=== PATIENT | male | born 1985 | race African-American/Black ===

== ENCOUNTER 2021-01-29 00:10 | Emergency (ER) | payer MEDICARE, OTHER ==
[~2021-01-29] VITALS: Ht 175.3 cm; Wt 107.0 kg
--- NOTE | 2021-01-29 00:30 | NUR ---
BIBSELF C/O VISUAL AND AUDITORY HALLUCINATIONS. DENIES SI/HI AT THIS TIME. PT AAOX4, CALM AND COOPERATIVE. VITAL SIGNS STABLE. RESPIRATIONS EVEN AND UNLABORED. NO ACUTE DISTRESS NOTED AT THIS TIME. SITTER AT BEDSIDE, WILL CONTINUE TO MONITOR.
[2021-01-29 00:57] LABS: BILIRUBIN,URINE SMALL (NEGATIVE); COLOR,URINE YELLOW (YELLOW); LEUKOCYTE ESTERASE ,URINE NEGATIVE (NEGATIVE); NITRITE, URINE NEGATIVE (NEGATIVE); PH,URINE 5.5 (5.0-8.0); PROTEIN,URINE NEGATIVE (NEGATIVE); UGLUCOSE NEGATIVE (NEGATIVE); UROBILINOGEN,URINE 0.2 EU/dL (0.2)
[2021-01-29 00:58] LABS: BASOPHILS # (AUTO) 0.1 /CMM (0.0-0.2); BASOPHILS % (AUTO) 0.8 % (0.0-2.0); EOSINOPHILS % (AUTO) 2.5 % (0.0-6.0); HEMATOCRIT 44 % (39-51); HEMOGLOBIN 14.7 g/dL (13.5-17.5); MEAN CORPUSCULAR HGB CONC 33 g/dl (31.0-36.0); MEAN CORPUSCULAR VOLUME 95 fL (80-96); MONOCYTES # (AUTO) 0.5 /CMM (0.1-1.30); MONOCYTES % (AUTO) 6.4 % (2.0-12.0); NEUTROPHILS # (AUTO) 3.9 /CMM (1.8-8.9); NEUTROPHILS % (AUTO) 51.3 % (43.0-81.0); PLATELET COUNT (AUTO) 210 /CMM (150-450); RED BLOOD CELL COUNT(AUTO) 4.64 MIL/uL (4.5-6.0); WHITE BLOOD COUNT (AUTO) 7.6 K/uL (4.3-11.0)
[2021-01-29 01:11] LABS: BACTERIA,URINE None seen /HPF (None Seen); MUCUS,URINE Few /LPF (None Seen); RBC,URINE 0-2 /HPF (0-2); SQUAMOUS EPITHELIAL CELL,UR Few /HPF (None Seen); WBC,URINE 0-2 /HPF (0-3)
[2021-01-29 01:27] LABS: CALCIUM, SERUM 9.4 mg/dL (8.5-10.1); CARBON DIOXIDE 24 mmol/L (21-32); CHLORIDE 107 mmol/L (98-107); CREATININE 0.8 mg/dL (0.6-1.3); GLUCOSE 82 mg/dL (74-106); POTASSIUM 3.2 mmol/L (3.5-5.1); SODIUM SERUM 142 mmol/L (136-145); UREA NITROGEN, BLOOD 13 mg/dL (7-18)
[2021-01-29 01:39] LABS: ALANINE AMINOTRANSFERASE 32 U/L (12-78); ALBUMIN 4.1 g/dL (3.4-5.0); ALCOHOL, BLOOD < 3 mg/dL (0-0); ALKALINE PHOSPHATASE 102 U/L (46-116); ASPARTATE AMINOTRANSFERASE 27 U/L (15-37); BILIRUBIN,DIRECT 0.1 mg/dL (0.0-0.2); BILIRUBIN,TOTAL 0.5 mg/dL (0.2-1.0); TOTAL PROTEIN, SERUM 8.9 g/dL (6.4-8.2)
[2021-01-29 01:44] LABS: ACETAMINOPHEN < 2 ug/ml (10-30)
[2021-01-29] MEDS ORDERED: LORAZEPAM 1 MG TABLET PO ONE (08:00)
[2021-01-29] MEDS ORDERED: LORAZEPAM 1 MG TABLET ONE (08:02)
--- NOTE | 2021-01-29 08:13 | NUR ---
PATIENT REFUSED THE ATIVAN AT THIS TIME. EXPLAINED RISKS AND BENEFITS. STILL REFUSED. HE SPIT OUT THE MEDICINE.
[2021-01-29] MEDS ORDERED: QUETIAPINE FUMARATE 100 MG TABLET PO SCH (08:30)
--- NOTE | 2021-01-29 08:35 | NUR ---
PATIENT STS HE TAKES SEROQUEL 400MG IN AM AND 600MG AT BEDTIME. INFORMED DR. NXION.
--- NOTE | 2021-01-29 09:25 | NUR ---
[facility]
--- NOTE | 2021-01-29 10:30 | NUR ---
ANGELICA SENIOR LABORATORY TECHNICIAN AT BEDSIDE FOR EVAL.
--- NOTE | 2021-01-29 10:30 | NUR ---
"Forest Fire Management Officer consult: web services professional consult requested for homelessness. Patient is a 35-year-old, male. Per chart, patient was brought in by self and complained of hallucinations. SW met with patient at his bedside in the emergency department. Patient was alert and oriented x4. Patient was resting. Patient stated that he is currently homeless. Patient currently receives SSDI. Patient stated that he has a history of substance use which includes daily cannabis use. Patient denied history of mental illness and denies current hallucinations or delusions. Patient stated that he experienced auditory and visual hallucinations earlier today. Patient denied current suicidal or homicidal ideation. SW provided patient with homeless and substance use resources. Patient accepted resources and thanked SW. Patient signed homeless waiver and SW filed waiver in the patients chart. Patient requested voluntary inpatient psychiatric hospitalization at [facility]. ED staff faxed clinicals to [facility], , per patient request. Pending review for placement. SW will continue to follow up with [facility]. PLAN: SW will continue to follow up with [facility]. SW will remain available as needed. Year-round shelters: [facility] [address] [place] [place] [address] ; [facility] [address] [place] [address]; [place] [facility] [id number] [facility] [address] SPA 4 | [facility] Recreation [place] Provider: First to Serve Address: [address], [address] # of Beds: 48 Population Served: [facility] Provider: First to Serve Address: 7[address] [facility], [address] # of Beds: 73 Population Served: [facility] 6 | [facility] Provider: Home at Last Address: [address] [facility], [address] # of Beds: 63 Population Served: [facility] 3 | [facility] Provider: Angelina frank [place] Address: [address] [place] [address] # of Beds: 75 Population Served: [facility] 8 | [facility] Provider: Dustin DIGGS Address: [address] [facility], [address] # of Beds: 80 Population Served: [place] SPA 1 | [facility] Provider: Dustin DIGGS Address: [address] [facility] [facility], [address] # of Beds: 85 Population Served: [place] SPA 2 | [facility] Provider: Viola frank [facility] Address: Confidential (please call for location) # of Beds: 52 Population Served: [place] SPA 4 | [facility] Provider: [facility] Address: [address] [facility], [address] # of Beds: 49 Population Served: [facility] Provider: First To Serve Address: [address] [place] [address], [address] # of Beds: 27 Population Served: Fatou Hygiene: [facility]: [address] [facility] ; [place] [facility] [address] [facility] ; [facility] 1069 [facility] . Food Resources: [place] [facility] at [facility]- 5700 [facility]; Meet Each Need with Dignity ([facility]) [address] [facility]; [facility] 1995 [facility]; [facility] 8539 [facility]. Mental Health resources provided: [facility] [address] [place] [address] ; [facility] [address] [facility] [address], [place] [address] ; Sima Gallardo [facility] [address] [place] [address] ; [facility] [address] [place], [place] [address] Healthcare Clinics: [facility] [address] [facility], [address] [place]. [place] ; [facility] [address] [facility] [address] [place] [address]; [facility] [address] Hilar[facility] Anthony[facility]. [place] [address] [phone] Counseling--Outpatient [facility] [address] [facility], [address] [place], [place] [address] (Specializes in in-depth psychotherapy for emotional distress: anxiety, depression, interpersonal conflicts, life transitions, childhood abuse) PSYCHIATRIC OUTPATIENT SERVICES [facility] Partial Hospitalization and Intensive Outpatient Program (Managed Care and [place] Only) [address] SacramentoCritical access hospital. [facility] 699838 [facility] Partial Hospitalization and Outpatient Program [address] [place] [facility]. [address] [place], [place] [id number] [facility] Partial Hospitalization and Outpatient Program 49[address] [facility]. [place], [place] [phone] [facility] Mental Health [place] [facility] [address] [facility]. [address] [place], [place] [id number] [facility] Partial Hospitalization and Outpatient Program [address] [place], [place] [phone] Substance use resources provided included: [facility] Substance Abuse Self-Helpline (SASH) ; CRI -HELP [address] [facility] [place] [address] ; [facility] [address] [facility] [address] ; [place] [address] [facility] [address] ; [facility] [address] [facility] [phone] ; [address] [facility] [phone] ; [facility]; [facility] [place]; [facility] [place]; Alcoholics Anonymous -SFV"
--- NOTE | 2021-01-29 12:00 | NUR ---
FOOD TRAY PROVIDED
--- NOTE | 2021-01-29 14:00 | NUR ---
FOLLOWED UP WITH [facility] WILL GIVE US A CALL BACK. REFAXED CLINICALS.
--- NOTE | 2021-01-29 17:57 | NUR ---
CALL BACK FROM [facility],ACCEPTED BY DR BLACKMAN TO COUNTS INCLUDE 234 BEDS AT THE [facility] VN
--- NOTE | 2021-01-29 17:57 | NUR ---
REPORT TO [phone]
--- NOTE | 2021-01-29 18:02 | NUR ---
TRANSPORT CALLED [facility] ETA 60 MINS.
[2021-01-29 18:03] VITALS: BP 144/83
--- NOTE | 2021-01-29 19:07 | NUR ---
PER TRANSPORT PATIENT NEEDS BARIATRIC GURNEY. NEW ETA 45 MINS
--- NOTE | 2021-01-29 19:53 | NUR ---
[facility] AT BEDSIDE FOR TRANSPORT TO [facility]
== END 2021-01-29 19:54 ==
LOC: ER 00:16
DX: F20.0 Paranoid schizophrenia (principal); Z91.14 Patient's other noncompliance with medication regimen; E11.9 Type 2 diabetes mellitus without complications; Z20.822 Contact with and (suspected) exposure to COVID-19
CPT/HCPCS: 36415; 80048-TC; 80076-TC; 81001; 85025-TC; C9803; G0480

== ENCOUNTER 2021-02-07 22:45 | Emergency (ER) | payer MEDICARE ==
[~2021-02-07] VITALS: Ht 175.3 cm; Wt 110.2 kg
--- NOTE | 2021-02-07 23:31 | NUR ---
PT BIBSELF C/O DEPRESSION, REQUESTING VOLUNTARY ADMISSION TO PSYCH FACILITY. PT AAOX4. NOTED TACHYCARDIA ON ARRIVAL, MD AWARE. CALM AND COOPERATIVE. AMBULATORY WITH STEADY GA[facility]. NO ACUTE DISTRESS NOTED. SUICIDAL PRECAUTIONS INITIATED
[2021-02-07 23:45] LABS: BILIRUBIN,URINE Negative (NEGATIVE); COLOR,URINE ORANGE (YELLOW); LEUKOCYTE ESTERASE ,URINE Negative (NEGATIVE); NITRITE, URINE Negative (NEGATIVE); PH,URINE 5.5 (5.0-8.0); PROTEIN,URINE 100 mg/dl (NEGATIVE); UGLUCOSE Negative (NEGATIVE); UROBILINOGEN,URINE 0.2 EU/dL (0.2)
[2021-02-08 00:02] LABS: BASOPHILS % (AUTO) 0.5 % (0.0-2.0); EOSINOPHILS % (AUTO) 1.6 % (0.0-6.0); HEMATOCRIT 47 % (39-51); HEMOGLOBIN 15.5 g/dL (13.5-17.5); LYMPHOCYTES # (AUTO) 2.8 /CMM (0.8-4.8); LYMPHOCYTES % (AUTO) 29.7 % (20.0-44.0); MEAN CORPUSCULAR HGB CONC 33 g/dl (31.0-36.0); MEAN CORPUSCULAR VOLUME 94 fL (80-96); MONOCYTES % (AUTO) 10.7 % (2.0-12.0); NEUTROPHILS # (AUTO) 5.4 /CMM (1.8-8.9); NEUTROPHILS % (AUTO) 57.5 % (43.0-81.0); PLATELET COUNT (AUTO) 228 /CMM (150-450); RED BLOOD CELL COUNT(AUTO) 4.97 MIL/uL (4.5-6.0); WHITE BLOOD COUNT (AUTO) 9.5 K/uL (4.3-11.0)
[2021-02-08 00:10] LABS: CALCIUM, SERUM 9.6 mg/dL (8.5-10.1); CARBON DIOXIDE 24 mmol/L (21-32); CHLORIDE 104 mmol/L (98-107); CREATININE 0.9 mg/dL (0.6-1.3); GLUCOSE 112 mg/dL (74-106); POTASSIUM 3.4 mmol/L (3.5-5.1); SODIUM SERUM 141 mmol/L (136-145); UREA NITROGEN, BLOOD 18 mg/dL (7-18)
[2021-02-08 00:15] LABS: ALANINE AMINOTRANSFERASE 38 U/L (12-78); ALBUMIN 4.1 g/dL (3.4-5.0); ALCOHOL, BLOOD < 3 mg/dL (0-0); ALKALINE PHOSPHATASE 114 U/L (46-116); ASPARTATE AMINOTRANSFERASE 27 U/L (15-37); BILIRUBIN,DIRECT 0.1 mg/dL (0.0-0.2); BILIRUBIN,TOTAL 0.3 mg/dL (0.2-1.0)
[2021-02-08 00:17] LABS: ACETAMINOPHEN < 2 ug/ml (10-30)
--- NOTE | 2021-02-08 04:14 | NUR ---
ACCEPTED IMELDA ESCUDERO MD IRIELE NUMBER FOR REPORT [phone] UNIT1
--- NOTE | 2021-02-08 04:19 | NUR ---
[facility] ETA 45MINUTES
--- NOTE | 2021-02-08 04:22 | NUR ---
REPORT GIVEN TO ABHINAV KWOK FROM [facility]
--- NOTE | 2021-02-08 04:31 | NUR ---
SPOKE WITH ART FROM [facility]. PER ART, REQUESTING TO SEND PATIENT AT 0800. CALLED [facility] AND SPOKE WITH ISABELLE DON 0800
--- NOTE | 2021-02-08 07:21 | NUR ---
RECEIVED A CALL FROM ART, PATIENT IS DECLINED FROM [facility], BUT ACCEPTED AT [facility] IF PATIENT IS AGREEABLE. PATIENT ACCEPTED [facility].
--- NOTE | 2021-02-08 07:23 | NUR ---
CALLED [facility] FOR A WILL CALL AMBULANCE. CHANGED ROUTE TO [place].
--- NOTE | 2021-02-08 08:47 | NUR ---
ACCEPTED AT [facility] # REPORT [phone] EXT [phone]
--- NOTE | 2021-02-08 08:50 | NUR ---
CALLED [facility] 45 MINS.
--- NOTE | 2021-02-08 09:06 | NUR ---
PATIENT STS HE WANTS TO JUMP OFF A BRIDGE. REPORT GIVEN TO EMMA [place] AT [facility].
--- NOTE | 2021-02-08 10:32 | NUR ---
The patient in stable condition and transfered to [facility] via arranged transpo.
[2021-02-08 10:33] VITALS: BP 128/75
== END 2021-02-08 10:33 ==
LOC: ER 22:45
DX: R45.851 Suicidal ideations (principal); F12.90 Cannabis use, unspecified, uncomplicated; Z20.822 Contact with and (suspected) exposure to COVID-19; F31.9 Bipolar disorder, unspecified; I10 Essential (primary) hypertension; E11.9 Type 2 diabetes mellitus without complications; F20.0 Paranoid schizophrenia
CPT/HCPCS: 36415; 80048-TC; 80076-TC; 85025-TC; C9803; G0480

== ENCOUNTER 2021-02-14 07:40 | Emergency (ER) | payer MEDICARE ==
[~2021-02-14] VITALS: Ht 175.3 cm; Wt 110.2 kg
--- NOTE | 2021-02-14 07:50 | NUR ---
C/O FEELING DEPRESSED AND SUICIDAL,"I WANT TO OF PAIN" PATIENT A/OX4, BREATHING EVEN AND UNLABORED, NO SOB NOTED. NEEDS ATTENDED. PATIENT ASSISTED TO WAITING ROOM, INSTRUCTED PATIENT TO CALL FOR ASSISTANCE.
--- NOTE | 2021-02-14 08:00 | NUR ---
BLOOD DRAWN, COVID SWAB SENT.
[2021-02-14 08:09] LABS: BASOPHILS # (AUTO) 0.1 /CMM (0.0-0.2); BASOPHILS % (AUTO) 1.1 % (0.0-2.0); EOSINOPHILS % (AUTO) 4.3 % (0.0-6.0); HEMATOCRIT 41 % (39-51); HEMOGLOBIN 13.9 g/dL (13.5-17.5); LYMPHOCYTES # (AUTO) 2.8 /CMM (0.8-4.8); LYMPHOCYTES % (AUTO) 41.3 % (20.0-44.0); MEAN CORPUSCULAR HGB CONC 34 g/dl (31.0-36.0); MEAN CORPUSCULAR VOLUME 93 fL (80-96); MONOCYTES # (AUTO) 0.6 /CMM (0.1-1.30); MONOCYTES % (AUTO) 8.8 % (2.0-12.0); NEUTROPHILS % (AUTO) 44.5 % (43.0-81.0); PLATELET COUNT (AUTO) 252 /CMM (150-450); WHITE BLOOD COUNT (AUTO) 6.8 K/uL (4.3-11.0)
[2021-02-14 08:15] LABS: CALCIUM, SERUM 9.3 mg/dL (8.5-10.1); CARBON DIOXIDE 30 mmol/L (21-32); CHLORIDE 105 mmol/L (98-107); CREATININE 0.8 mg/dL (0.6-1.3); GLUCOSE 122 mg/dL (74-106); POTASSIUM 3.4 mmol/L (3.5-5.1); SODIUM SERUM 143 mmol/L (136-145); UREA NITROGEN, BLOOD 12 mg/dL (7-18)
[2021-02-14 08:28] LABS: BILIRUBIN,URINE Negative (NEGATIVE); COLOR,URINE YELLOW (YELLOW); LEUKOCYTE ESTERASE ,URINE Negative (NEGATIVE); NITRITE, URINE Negative (NEGATIVE); PH,URINE 5.5 (5.0-8.0); PROTEIN,URINE 30 mg/dl (NEGATIVE); UGLUCOSE Negative (NEGATIVE); UROBILINOGEN,URINE 0.2 EU/dL (0.2)
[2021-02-14 08:28] LABS: ALANINE AMINOTRANSFERASE 37 U/L (12-78); ALBUMIN 3.8 g/dL (3.4-5.0); ALKALINE PHOSPHATASE 118 U/L (46-116); ASPARTATE AMINOTRANSFERASE 31 U/L (15-37); BILIRUBIN,DIRECT 0.1 mg/dL (0.0-0.2); BILIRUBIN,TOTAL 0.3 mg/dL (0.2-1.0); TOTAL PROTEIN, SERUM 8.1 g/dL (6.4-8.2)
[2021-02-14 08:39] LABS: ACETAMINOPHEN 0 ug/ml (10-30); ALCOHOL, BLOOD < 3 mg/dL (0-0)
[2021-02-14 08:40] LABS: BACTERIA,URINE Rare /HPF (None Seen); RBC,URINE 0-2 /HPF (0-2); SQUAMOUS EPITHELIAL CELL,UR None Seen /HPF (None Seen); WBC,URINE 0-2 /HPF (0-3)
--- NOTE | 2021-02-14 10:25 | NUR ---
Pretzel Cooker note: director professional services consult requested for suicidal ideation and homelessness. Patient is a 35-year-old, male. SW attempted to interview patient in the waiting room of the emergency department. Upon arrival, pt was not in the waiting room. SW will follow up at a later time to interview the patient.
--- NOTE | 2021-02-14 11:12 | NUR ---
POLICE LIEUTENANT PRECINCT AT BEDSIDE FOR CONSULT.
--- NOTE | 2021-02-14 11:30 | NUR ---
Programmer Developer consult: adoption services manager consult requested for suicidal ideation and homelessness. Patient is a 35-year-old, male. SW met with patient in the waiting room of the emergency department. Patient was alert and oriented x4. Patient presented calm and appeared appropriately dressed. Per chart, patient came to the hospital on 02/14/21 with complaints of feeling depressed and suicidal. Patient stated that he is currently homeless but was staying at a hotel prior to his hospital visit. Patient stated that his current source of income is SSI and SSDI. Patient stated that he has been locating living arrangement options and plans to live in a board and care. SW asked patient about his history of substance use and patient reported daily cannabis, cigarette, and alcohol use. SW assessed patients history of mental illness and patient reported a history of Paranoid Schizophrenia, Bipolar type. Patient reported that he is currently taking psychiatric medication which includes, Seroquel and Dopamine. Patient denied current suicidal and homicidal ideation and stated, I dont feel suicidal right now but need some help. SW offered the patient homeless and substance use resources. Patient declined the resources stating that he did not need them. Patient signed homeless waiver and SW filed waiver in the patients chart. Patient requested to be referred to [facility] for inpatient psychiatric treatment. JUSTIN will fax clinicals to [facility], , for review. PLAN: JUSTIN will fax clinicals to [facility] for review.
--- NOTE | 2021-02-14 11:52 | NUR ---
PATIENT IN THE WAITING ROOM.
--- NOTE | 2021-02-14 12:11 | NUR ---
Claim Inspector note: JUSTIN faxed clinicals to [facility], , for review.
--- NOTE | 2021-02-14 13:00 | NUR ---
Director Of Healthcare Systems note: Per product marketing coordinator, Nils ([phone]), patient has been accepted to [facility]. ED staff to call in to report at 1:30 p. (Meghan: [phone])
--- NOTE | 2021-02-14 13:24 | NUR ---
FAXED COVID RESULT TO [facility] CALL VN.
--- NOTE | 2021-02-14 14:11 | NUR ---
[facility]ED [facility] FOR TRANSPORT TO [facility]. ETA 90 MINUTES.
--- NOTE | 2021-02-14 14:58 | NUR ---
CALL FROM [facility]:ACCEPTED BY DR BLACKMAN,REPORT TO [id number]
[2021-02-14 15:35] VITALS: BP 134/82
--- NOTE | 2021-02-14 15:36 | NUR ---
report given to UNIT 2 at [facility]. Patient a/ox4, in stable condition. No distress noted. Patient transferred to [facility].
== END 2021-02-14 15:37 ==
LOC: ER 07:45
DX: R45.851 Suicidal ideations (principal); F20.0 Paranoid schizophrenia; Z59.0 Homelessness; Z20.822 Contact with and (suspected) exposure to COVID-19
CPT/HCPCS: 36415; 80048-TC; 80076-TC; 81001; 85025-TC; C9803; G0480

== ENCOUNTER 2021-03-24 03:25 | Emergency (ER) | payer MEDICARE ==
[~2021-03-24] VITALS: Ht 175.3 cm; Wt 131.5 kg
--- NOTE | 2021-03-24 03:30 | NUR ---
TO ER BED REQUESTING MEDICAL CLEARANCE FOR VOLUNTARY PSYCH ADMISSION. PT C/O SI WITH PLAN TO "OVERDOSE ON MEDS". DENIES HI. PT AAOX4 NO ACUTE DISTRESS NOTED, RESP EVEN AND UNLABORED. PT CALM AND COOPERATIVE AT THIS TIME. ER MD AT BEDSIDE TO EVAL PT WITH ORDERS RECEIVED. WILL CARRY OUT ORDERS.
--- NOTE | 2021-03-24 03:45 | NUR ---
URINE SAMPLE COLLECTED AND SENT TO LAB.
--- NOTE | 2021-03-24 03:56 | NUR ---
DAIRY CATTLE FARM WORKER AT BEDSIDE FOR BLOOD DRAW.
--- NOTE | 2021-03-24 04:02 | NUR ---
COVID SWAB COLLECTED AND SENT TO LAB.
[2021-03-24 04:08] LABS: BASOPHILS # (AUTO) 0.1 K/uL (0.0-0.2); BASOPHILS % (AUTO) 1.2 % (0.0-2.0); EOSINOPHILS % (AUTO) 2.3 % (0.0-6.0); HEMATOCRIT 40 % (39-51); HEMOGLOBIN 13.6 g/dL (13.5-17.5); LYMPHOCYTES # (AUTO) 2.6 K/uL (0.8-4.8); MEAN CORPUSCULAR HGB CONC 34 g/dl (31.0-36.0); MEAN CORPUSCULAR VOLUME 92 fL (80-96); MONOCYTES # (AUTO) 0.8 K/uL (0.1-1.30); MONOCYTES % (AUTO) 8.9 % (2.0-12.0); NEUTROPHILS # (AUTO) 5.1 K/uL (1.8-8.9); NEUTROPHILS % (AUTO) 57.6 % (43.0-81.0); PLATELET COUNT (AUTO) 215 K/uL (150-450); WHITE BLOOD COUNT (AUTO) 8.8 K/uL (4.3-11.0)
[2021-03-24 04:10] LABS: BILIRUBIN,URINE Negative (NEGATIVE); COLOR,URINE YELLOW (YELLOW); LEUKOCYTE ESTERASE ,URINE Negative (NEGATIVE); NITRITE, URINE Negative (NEGATIVE); PROTEIN,URINE Negative (NEGATIVE); UGLUCOSE Negative (NEGATIVE)
[2021-03-24 04:22] LABS: CALCIUM, SERUM 8.7 mg/dL (8.5-10.1); CARBON DIOXIDE 28 mmol/L (21-32); CHLORIDE 106 mmol/L (98-107); CREATININE 0.7 mg/dL (0.6-1.3); GLUCOSE 104 mg/dL (74-106); POTASSIUM 3.6 mmol/L (3.5-5.1); SODIUM SERUM 143 mmol/L (136-145); UREA NITROGEN, BLOOD 19 mg/dL (7-18)
[2021-03-24 04:28] LABS: ALANINE AMINOTRANSFERASE 25 U/L (12-78); ALBUMIN 3.6 g/dL (3.4-5.0); ALCOHOL, BLOOD < 3 mg/dL (0-0); ALKALINE PHOSPHATASE 99 U/L (46-116); ASPARTATE AMINOTRANSFERASE 17 U/L (15-37); BILIRUBIN,DIRECT 0.1 mg/dL (0.0-0.2); BILIRUBIN,TOTAL 0.3 mg/dL (0.2-1.0); TOTAL PROTEIN, SERUM 7.9 g/dL (6.4-8.2)
[2021-03-24 04:32] LABS: ACETAMINOPHEN 0 ug/ml (10-30)
[2021-03-24 04:56] LABS: BACTERIA,URINE None seen /HPF (None Seen); RBC,URINE 0-2 /HPF (0-2); SQUAMOUS EPITHELIAL CELL,UR None Seen /HPF (None Seen); WBC,URINE 0-2 /HPF (0-3)
--- NOTE | 2021-03-24 05:19 | NUR ---
CLINICAL AND FACESHEET FAXED TO [facility] FOR VOLUNTARY PSYCH ADMISSION.
--- NOTE | 2021-03-24 05:55 | NUR ---
pt accepted to [facility] under Dr Fang. Give report to Lauro at [phone]
--- NOTE | 2021-03-24 06:04 | NUR ---
TRANSPORT CALLED ([facility]) ETA 30-45MIN.
--- NOTE | 2021-03-24 06:04 | NUR ---
REPORT GIVEN TO IMELDA ANGEL SUP CODY
--- NOTE | 2021-03-24 06:54 | NUR ---
TRANSPORT AT BEDSIDE REPORT GIVEN TO EMT.
[2021-03-24 06:55] VITALS: BP 143/86
== END 2021-03-24 07:39 ==
LOC: ER 03:26
DX: R45.851 Suicidal ideations (principal); F12.90 Cannabis use, unspecified, uncomplicated; Z20.822 Contact with and (suspected) exposure to COVID-19; F20.0 Paranoid schizophrenia; I10 Essential (primary) hypertension; E11.9 Type 2 diabetes mellitus without complications
CPT/HCPCS: 36415; 80048-TC; 80076-TC; 81001; 85025-TC; C9803; G0480

== ENCOUNTER 2021-05-13 14:57 | Emergency (ER) | payer MEDICARE ==
[~2021-05-13] VITALS: Ht 175.3 cm; Wt 129.7 kg
--- NOTE | 2021-05-13 15:49 | NUR ---
PT SELF PRESENTS TO ED. REQUESTING VOLUNTARY PSYCH ADMISSION TO [facility]. PT IS FEELING PARANOID THINKING SOMEBODY OUT TO GET HIM. DENIES SI/HI. COOPERATIVE TO HOSPITAL. STABLE VITALS. DENIES ANY MEDICAL COMPLAINT. AWAITING MD MAURER.
--- NOTE | 2021-05-13 15:50 | NUR ---
URINE SPECIMEN COLLECTED AND SENT TO LAB.
--- NOTE | 2021-05-13 16:30 | NUR ---
DR HERNÁNDEZ AT BEDSIDE FOR EVAL.
--- NOTE | 2021-05-13 16:58 | NUR ---
Keyla mota in [facility] - 05/13/21 at 1658 by SADE PHLEBATOMIST AT THE BEDSIDE
[2021-05-13 17:23] LABS: BILIRUBIN,URINE NEGATIVE (NEGATIVE); COLOR,URINE YELLOW (YELLOW); LEUKOCYTE ESTERASE ,URINE SMALL (NEGATIVE); NITRITE, URINE NEGATIVE (NEGATIVE); PH,URINE 5.5 (5.0-8.0); PROTEIN,URINE TRACE mg/dl (NEGATIVE); UGLUCOSE NEGATIVE (NEGATIVE); UROBILINOGEN,URINE 0.2 EU/dL (0.2)
[2021-05-13 17:38] LABS: BACTERIA,URINE 1+ /HPF (None Seen); SQUAMOUS EPITHELIAL CELL,UR Few /HPF (None Seen); WBC,URINE 21-50 /HPF (0-3)
[2021-05-13 17:39] LABS: URINE AMORPHOUS URATE Moderate /HPF (None Seen)
[2021-05-13 18:19] LABS: BASOPHILS % (AUTO) 0.6 % (0.0-2.0); EOSINOPHILS % (AUTO) 0.3 % (0.0-6.0); HEMATOCRIT 45 % (39-51); HEMOGLOBIN 15.1 g/dL (13.5-17.5); LYMPHOCYTES # (AUTO) 2.2 K/uL (0.8-4.8); LYMPHOCYTES % (AUTO) 28.9 % (20.0-44.0); MEAN CORPUSCULAR HGB CONC 34 g/dl (31.0-36.0); MEAN CORPUSCULAR VOLUME 94 fL (80-96); MONOCYTES # (AUTO) 0.7 K/uL (0.1-1.30); MONOCYTES % (AUTO) 8.7 % (2.0-12.0); NEUTROPHILS # (AUTO) 4.6 K/uL (1.8-8.9); NEUTROPHILS % (AUTO) 61.5 % (43.0-81.0); PLATELET COUNT (AUTO) 220 K/uL (150-450); RED BLOOD CELL COUNT(AUTO) 4.78 MIL/uL (4.5-6.0); WHITE BLOOD COUNT (AUTO) 7.5 K/uL (4.3-11.0)
[2021-05-13 18:34] LABS: CALCIUM, SERUM 9.4 mg/dL (8.5-10.1); CARBON DIOXIDE 25 mmol/L (21-32); CHLORIDE 106 mmol/L (98-107); CREATININE 0.8 mg/dL (0.6-1.3); GLUCOSE 81 mg/dL (74-106); POTASSIUM 3.4 mmol/L (3.5-5.1); SODIUM SERUM 141 mmol/L (136-145); UREA NITROGEN, BLOOD 13 mg/dL (7-18)
[2021-05-13 18:40] LABS: ALANINE AMINOTRANSFERASE 24 U/L (12-78); ALBUMIN 4.2 g/dL (3.4-5.0); ALCOHOL, BLOOD < 3 mg/dL (0-0); ALKALINE PHOSPHATASE 117 U/L (46-116); ASPARTATE AMINOTRANSFERASE 19 U/L (15-37); BILIRUBIN,DIRECT 0.1 mg/dL (0.0-0.2); BILIRUBIN,TOTAL 0.4 mg/dL (0.2-1.0); TOTAL PROTEIN, SERUM 9.5 g/dL (6.4-8.2)
[2021-05-13 18:43] LABS: ACETAMINOPHEN 0 ug/ml (10-30)
[2021-05-13] MEDS ORDERED: CEFTRIAXONE 500 MG VIAL IM ONE (19:30)
[2021-05-13] MEDS ORDERED: DOXYCYCLINE HYCLATE (100 MG) 100 MG TABLET PO ONE (19:30)
--- NOTE | 2021-05-13 19:58 | NUR ---
PT PROVIDED WITH WARM BLANKETS AND WATER.
--- NOTE | 2021-05-13 20:02 | NUR ---
FACESHEET AND CLINICALS FAXED TO IMELDA MADDOX.
[2021-05-13] MEDS ORDERED: CEFTRIAXONE 500 MG VIAL ONE (20:13)
[2021-05-13] MEDS ORDERED: LIDOCAINE 1% INJ 50 ML MDV IJ ONE (20:13)
[2021-05-13] MEDS ORDERED: DOXYCYCLINE HYCLATE (100 MG) 100 MG TABLET ONE (20:13)
[2021-05-13] MEDS ORDERED: OLANZAPINE 5 MG TABLET ONE (20:53)
[2021-05-13] MEDS ORDERED: OLANZAPINE 5 MG TABLET PO ONE (21:00)
[2021-05-13] MEDS ORDERED: DOXY100C2 PO (21:36)
--- NOTE | 2021-05-14 05:17 | NUR ---
Patient is resting comfortably in bed with eyes closed. Easily aroused. VSS
--- NOTE | 2021-05-14 07:55 | NUR ---
THE PATIENT IS RECEIVED IN ER BED #14. THE PATIENT IS ALERT AND ORIENTED X3. IN ROOM AIR AND DENIES SOB. RESPIRATION REGULAR AND UNLABORED. SITTER AT THE BEDSIDE. WILL CONTINUE TO MONITOR THE PATIENT.
--- NOTE | 2021-05-14 08:02 | NUR ---
THE PATIET IS HAVING BREAKFAST
--- NOTE | 2021-05-14 09:08 | NUR ---
RECEIVED A CALL FROM [facility]. PT ACCEPTED AND GOOD TO BE TRANSPORTED. ACCEPTING DR. PERRY NUMBER FOR REPORT. [phone].
--- NOTE | 2021-05-14 09:12 | NUR ---
CALLED [facility] FOR TRANSPORT TO [facility]. ETA 90 MINUTES.
--- NOTE | 2021-05-14 09:18 | NUR ---
REPORT GIVEN TO NURSE WILMA FROM [facility] ESCUD[facility]
[2021-05-14] MEDS ORDERED: POTASSIUM CHLORIDE 20 MEQ TAB.PRT.SR PO ONE ×2 (10:00→10:57)
--- NOTE | 2021-05-14 10:50 | NUR ---
Counter Hand consult: media services director consult requested for pt requesting voluntary psychiatric placement and for homelessness. Patient is a 36-year-old, male. SW met with patient at his bedside in the emergency department. Patient was alert and oriented x3. Patient presented with a depressed mood and affect. Patient appeared appropriately groomed and well-dressed. Per chart, patient was brought in by self on 05/13/21, presenting with paranoid ideation and requesting voluntary psychiatric admission. Patient stated that he is currently homeless and lives on the street. Patient stated that his current source of income is [employer]. Patient repeatedly stated that he plans to return to a senior care in [place] but was unable to state how he would execute this plan. SW asked patient about his history of substance use and patient reported daily cannabis and alcohol use, stating that his frequency of use for these substances are 1-2 times a day. SW assessed patient's history of mental illness and patient reported a history of Paranoid Schizophrenia, Bipolar type. Patient reported that he was previously taking psychotropic medications which includes, Seroquel and Wellbutrin. Patient stated that he stopped taking the medications because they made him feel bad and he "needed to be alert." Patient denied current suicidal and homicidal ideation but stated, "If you gave me some time, I would take pills and not wake up." Patient stated, "I'm not suicidal, I'm just ready to quit getting my feelings hurt." SW offered the patient homeless, mental health and substance use resources. Patient accepted the resources and thanked SW. Patient signed homeless waiver and SW filed waiver in the patient's chart. Per chart, patient will be transferred to [facility] and has been accepted. PLAN: Patient will be transferred to [facility] for voluntary psychiatric admission. No further SS intervention at this time, however, SW will remain available as needed. RESOURCES: Year-round shelters: [facility] [place] [address] [place] [address] ; [facility] [place] [address] [place] [address]; [facility] [id number] [facility]. [facility] [address] SPA 4 | [facility] Provider: First to Serve Address: [address] [place] [address], [facility] # of Beds: 48 Population Served: [facility] Provider: First to Serve Address: 7600 [facility], [address] # of Beds: 73 Population Served: [facility] 6 | [facility] Provider: Home at Last Address: [address] [facility], [address] # of Beds: 63 Population Served: [facility] 3 | [facility] Provider: [facility] [place] Address: [address] [facility], [address] # of Beds: 75 Population Served: [facility] 8 | [facility] Provider: [facility] [place] Address: 84[address] [facility] [address] # of Beds: 80 Population Served: [facility] 1 | [facility] Provider: [facility] [place] Address: [address] [place] [address], [address] # of Beds: 85 Population Served: [facility] 2 | [facility] Provider: [facility] Address: Confidential (please call for location) # of Beds: 52 Population Served: [facility] 4 | [facility] Provider: [facility] Address: 5[address] [facility], [address] # of Beds: 49 Population Served: [facility] Provider: First To Serve Address: [address] [facility], [address] # of Beds: 27 Population Served: [facility] Hygiene: [place] [facility]: [address] [address] [place] ; [facility] [facility] [address] [facility] ; [facility] 8925 Karlos Dean . Food Resources: [place] [facility] at [facility]- [address] Jan[address] [place]; Meet Each Need with Dignity (MEND) [address] [place]; [facility] Food Pantry 1876 [facility]; [facility] 5799 [place]elia [place]. Mental Health resources provided: [facility] [address] [place] [address] ; [facility] Health [place], Inc[facility] [address] [facility] [address], [place], [place] [phone] ; [facility] [address] [facility] [place], [place] [id number] ; [facility] [place], [place] [id number] Healthcare Clinics: [facility] 6551 [facility], [address] [place]. [place] ; [facility] 68[address] [facility] [address] [place] [address]; [facility] [address] [facility] [place] [address] [phone] Counseling--Outpatient [facility] 44[address] [facility], [place] [address] (Specializes in in-depth psychotherapy for emotional distress: anxiety, depression, interpersonal conflicts, life transitions, childhood abuse) PSYCHIATRIC OUTPATIENT SERVICES [facility] Partial Hospitalization and Intensive Outpatient Program (Managed Care and [place] Only) [address] [facility] [id number] [facility] Partial Hospitalization and Outpatient Program [address] [place] [address] [facility] Partial Hospitalization and Outpatient Program [address] [place], [place] [id number] VAN YS [facility] [facility] [address] [facility]. [address] [place], [place] [phone] [facility] Partial Hospitalization and Outpatient Program [address] Tr[address] [facility] Hospital[facility]agen[facility], [place] [phone] Substance use resources provided included: [facility] Substance Abuse Self-Helpline (SAS) ; CRI -HELP [address] [facility]. [place] [address] ; [facility] [address] [facility] [address] ; [facility] 400 [facility] [address] ; [facility] [place] 4770 [facility] [address] ; [facility] 909 [facility] [phone] ; [facility]; C[facility]Help [place]; [place]; Alcoholics Anonymous -SFV
[2021-05-14 11:45] VITALS: BP 135/75
--- NOTE | 2021-05-14 11:45 | NUR ---
THE PATIENT IS DISCHARGED GOING TO [facility] IN STABLE CONDITION AND VIA ARRANGED TRANSPO.
== END 2021-05-14 11:46 ==
LOC: ER 15:15
DX: F20.0 Paranoid schizophrenia (principal); R82.81 Pyuria; Z82.49 Family history of ischemic heart disease and other diseases of the circulatory system; Z20.822 Contact with and (suspected) exposure to COVID-19; E11.9 Type 2 diabetes mellitus without complications; I10 Essential (primary) hypertension; Z72.51 High risk heterosexual behavior; Z88.8 Allergy status to other drugs, medicaments and biological substances; R00.0 Tachycardia, unspecified
CPT/HCPCS: 36415; 76770; 80048; 80076; 80143; 80307; 80320; 81001; 84484; 85025; 87086; 87426; 93005; 96372; 99285; J0696; J3490; C9803; G0480

== ENCOUNTER 2021-08-23 18:31 | Emergency (ER) | payer MEDICARE ==
[~2021-08-23] VITALS: Ht 180.3 cm; Wt 113.4 kg
[~2021-08-23 18:31] MED LIST changes: -QUET300T2 PO
--- NOTE | 2021-08-23 19:36 | NUR ---
URINE COLLECTED AND SENT TO LAB
[2021-08-23 19:48] LABS: BASOPHILS # (AUTO) 0.1 K/uL (0.0-0.2); BASOPHILS % (AUTO) 0.8 % (0.0-2.0); EOSINOPHILS % (AUTO) 1.3 % (0.0-6.0); HEMATOCRIT 40 % (39-51); HEMOGLOBIN 13.7 g/dL (13.5-17.5); LYMPHOCYTES % (AUTO) 41.1 % (20.0-44.0); MEAN CORPUSCULAR HGB CONC 34 g/dl (31.0-36.0); MEAN CORPUSCULAR VOLUME 94 fL (80-96); MONOCYTES # (AUTO) 0.7 K/uL (0.1-1.30); MONOCYTES % (AUTO) 6.9 % (2.0-12.0); NEUTROPHILS # (AUTO) 4.8 K/uL (1.8-8.9); NEUTROPHILS % (AUTO) 49.9 % (43.0-81.0); PLATELET COUNT (AUTO) 284 K/uL (150-450); RED BLOOD CELL COUNT(AUTO) 4.25 MIL/uL (4.5-6.0); WHITE BLOOD COUNT (AUTO) 9.7 K/uL (4.3-11.0)
[2021-08-23 19:55] LABS: ALANINE AMINOTRANSFERASE 22 U/L (12-78); ALBUMIN 3.7 g/dL (3.4-5.0); ALCOHOL, BLOOD < 3 mg/dL (0-0); ALKALINE PHOSPHATASE 88 U/L (46-116); ASPARTATE AMINOTRANSFERASE 16 U/L (15-37); BILIRUBIN,DIRECT 0.1 mg/dL (0.0-0.2); BILIRUBIN,TOTAL 0.3 mg/dL (0.2-1.0); CALCIUM, SERUM 9.5 mg/dL (8.5-10.1); CARBON DIOXIDE 25 mmol/L (21-32); CHLORIDE 103 mmol/L (98-107); CREATININE 0.9 mg/dL (0.6-1.3); GLUCOSE 83 mg/dL (74-106); POTASSIUM 3.5 mmol/L (3.5-5.1); SODIUM SERUM 140 mmol/L (136-145); TOTAL PROTEIN, SERUM 8.9 g/dL (6.4-8.2); UREA NITROGEN, BLOOD 14 mg/dL (7-18)
[2021-08-23 20:02] LABS: ACETAMINOPHEN < 2 ug/ml (10-30)
--- NOTE | 2021-08-23 20:11 | NUR ---
BIBS C/O SI REQUESTING VOLUNTARY ADMISSION TO [facility]. BREATHING EVEN AND UNLABORED AND ALL V/S STABLE.
--- NOTE | 2021-08-23 20:12 | NUR ---
COVID ANTIGEN SWAB COLLECTED AND SENT TO LAB
[2021-08-23 20:16] LABS: BILIRUBIN,URINE NEGATIVE (NEGATIVE); COLOR,URINE YELLOW (YELLOW); LEUKOCYTE ESTERASE ,URINE NEGATIVE (NEGATIVE); NITRITE, URINE NEGATIVE (NEGATIVE); PH,URINE 5.5 (5.0-8.0); PROTEIN,URINE 30 mg/dl (NEGATIVE); UGLUCOSE NEGATIVE (NEGATIVE)
[2021-08-23 21:01] LABS: BACTERIA,URINE None seen /HPF (None Seen); RBC,URINE 0-2 /HPF (0-2); SQUAMOUS EPITHELIAL CELL,UR 0-2 /HPF (None Seen); URINE AMORPHOUS URATE Moderate /HPF (None Seen); WBC,URINE 0-2 /HPF (0-3)
--- NOTE | 2021-08-24 01:23 | NUR ---
Patient is resting comfortably in bed with eyes closed. Easily aroused. VSS
--- NOTE | 2021-08-24 04:43 | NUR ---
Accepted at [facility] under dr. dacosta. [phone] for report
--- NOTE | 2021-08-24 04:46 | NUR ---
report given to gopi berry for zeke
--- NOTE | 2021-08-24 05:55 | NUR ---
BOTTOM PRECIPITATOR OPERATOR AT 0700 BY [facility] TRAN[facility]
[2021-08-24 07:26] VITALS: BP 119/67
--- NOTE | 2021-08-24 07:32 | NUR ---
REPORT GIVEN TO ASSEMBLY RIVETER GOING TO [facility] G[facility].
[2021-08-31] MEDS ORDERED: QUET300T2 PO (11:15)
== END 2021-08-24 07:46 ==
LOC: ER 18:33
DX: R45.851 Suicidal ideations (principal); F17.200 Nicotine dependence, unspecified, uncomplicated; Z59.01 Sheltered homelessness; F20.0 Paranoid schizophrenia; E11.9 Type 2 diabetes mellitus without complications; I10 Essential (primary) hypertension; Z88.8 Allergy status to other drugs, medicaments and biological substances; Z20.822 Contact with and (suspected) exposure to COVID-19
CPT/HCPCS: 36415; 80048-TC; 80076-TC; 81001; 85025-TC; C9803; G0480

== ENCOUNTER → 2021-08-23 | Emergency (ER) | payer MEDICARE ==
[~2021-08-23] MED LIST: DOXY100C2 PO; QUET300T2 PO
--- NOTE | 2021-08-23 18:00 | NUR ---
Multiple calls NO response was told by Shy "he left"
== END | disposition left against medical advice (07) ==
LOC: ER 18:01
DX: Z53.21 Procedure and treatment not carried out due to patient leaving prior to being seen by health care provider (principal)

== ENCOUNTER → 2021-08-31 | Emergency (ER) | payer MEDICARE, OTHER ==
[~2021-08-31] VITALS: Ht 175.3 cm; Wt 110.2 kg
[~2021-08-31] MED LIST changes: +QUET300T2 PO
[2021-08-31 10:58] VITALS: BP 140/75
--- NOTE | 2021-08-31 10:58 | NUR ---
MED-REFILL FOR SEROQUEL 600 MG HS
--- NOTE | 2021-08-31 11:20 | NUR ---
JUSTIN FIELD SPEAKING WITH PT
--- NOTE | 2021-08-31 11:21 | NUR ---
Patient discharged to home in stable condition. patient was given his medication, sent to his preferred pharmacy. Written and verbal after care instructions given. Patient verbalizes understanding of instruction.
== END | disposition home or self-care (01) ==
LOC: ER 10:48
DX: F20.9 Schizophrenia, unspecified (principal); I10 Essential (primary) hypertension; E11.9 Type 2 diabetes mellitus without complications; F17.290 Nicotine dependence, other tobacco product, uncomplicated; Z76.0 Encounter for issue of repeat prescription; Z88.8 Allergy status to other drugs, medicaments and biological substances; Z79.2 Long term (current) use of antibiotics

== ENCOUNTER 2021-09-01 15:59 | Emergency (ER) | payer MEDICARE, OTHER ==
[~2021-09-01] VITALS: Ht 175.3 cm; Wt 110.2 kg
[2021-09-01 16:37] VITALS: BP 150/90
--- NOTE | 2021-09-01 16:40 | NUR ---
AT BEDSIDE FOR EVAL
--- NOTE | 2021-09-01 16:48 | NUR ---
Patient eloped from facility. ER MD notified.
== END 2021-09-01 16:49 | disposition left against medical advice (07) ==
LOC: ER 16:01
DX: F20.9 Schizophrenia, unspecified (principal); I10 Essential (primary) hypertension; E11.9 Type 2 diabetes mellitus without complications; F17.290 Nicotine dependence, other tobacco product, uncomplicated; Z76.0 Encounter for issue of repeat prescription; Z79.2 Long term (current) use of antibiotics; Z79.899 Other long term (current) drug therapy; Z88.8 Allergy status to other drugs, medicaments and biological substances

== ENCOUNTER 2021-09-03 21:34 | Emergency (ER) | payer MEDICARE ==
--- NOTE | 2021-09-03 21:54 | NUR ---
PT WAS CALLED TO TRIAGE. PT DOES NOT WANT TO BE SEEN BY THE MD. HE WANT TO TALK TO THE SENIOR ADMINISTRATIVE ASSOCIATE BUT HOSPITAL SENIOR ADMINISTRATIVE ASSOCIATE NOT AVAILABLE. PT WAS MADE AWARE THE SENIOR ADMINISTRATIVE ASSOCIATE WILL BE COMING IN THE MORNING. PT WANT TO JUST COME BACK WHEN SENIOR ADMINISTRATIVE ASSOCIATE IS IN.
== END 2021-09-03 21:57 | disposition left against medical advice (07) ==
LOC: ER 21:34
DX: Z53.21 Procedure and treatment not carried out due to patient leaving prior to being seen by health care provider (principal)

== ENCOUNTER → 2021-09-04 | Emergency (ER) | payer MEDICARE, OTHER ==
[~2021-09-04] MED LIST changes: +QUETIAPINE FUMARATE 100 MG TABLET PO STA
--- NOTE | 2021-09-04 16:46 | NUR ---
CALLED TO BE MEDICATED AND FOR ACCU CHECK,NO ANSWER
== END | disposition left against medical advice (07) ==
LOC: ER 14:42
DX: Z76.0 Encounter for issue of repeat prescription (principal); F20.9 Schizophrenia, unspecified; E11.9 Type 2 diabetes mellitus without complications; I10 Essential (primary) hypertension; F17.200 Nicotine dependence, unspecified, uncomplicated; Z88.8 Allergy status to other drugs, medicaments and biological substances; Z60.2 Problems related to living alone; Z79.899 Other long term (current) drug therapy

== ENCOUNTER 2021-11-02 08:09 | Emergency (ER) | payer OTHER ==
[~2021-11-02] VITALS: Ht 175.3 cm; Wt 109.8 kg
[~2021-11-02 08:09] MED LIST changes: -QUETIAPINE FUMARATE 100 MG TABLET PO STA
--- NOTE | 2021-11-02 08:09 | NUR ---
PT BIB SELF C/O SI "I WANT TO OD ON PILLS." PT RE[facility]ING [facility]. PT IS AAOX4, NOT IN RESPIRATORY DISTRESS, V/S STABLE. KEPT RESTED AND COMFORTABLE. WILL CONTINUE TO MONITOR.
--- NOTE | 2021-11-02 08:26 | NUR ---
URINE SPECIMEN COLLECTED AND SENT TO LAB.
[2021-11-02 08:40] LABS: BILIRUBIN,URINE NEGATIVE (NEGATIVE); COLOR,URINE YELLOW (YELLOW); LEUKOCYTE ESTERASE ,URINE NEGATIVE (NEGATIVE); NITRITE, URINE NEGATIVE (NEGATIVE); PH,URINE 7.5 (5.0-8.0); PROTEIN,URINE NEGATIVE (NEGATIVE); UGLUCOSE NEGATIVE (NEGATIVE); UROBILINOGEN,URINE 0.2 EU/dL (0.2)
[2021-11-02 08:58] LABS: BASOPHILS # (AUTO) 0.1 K/uL (0.0-0.2); BASOPHILS % (AUTO) 0.7 % (0.0-2.0); EOSINOPHILS % (AUTO) 0.2 % (0.0-6.0); HEMATOCRIT 41 % (39-51); HEMOGLOBIN 13.5 g/dL (13.5-17.5); LYMPHOCYTES # (AUTO) 2.2 K/uL (0.8-4.8); MEAN CORPUSCULAR HGB CONC 33 g/dl (31.0-36.0); MEAN CORPUSCULAR VOLUME 92 fL (80-96); MONOCYTES % (AUTO) 8.8 % (2.0-12.0); NEUTROPHILS # (AUTO) 8.3 K/uL (1.8-8.9); NEUTROPHILS % (AUTO) 71.3 % (43.0-81.0); PLATELET COUNT (AUTO) 211 K/uL (150-450); WHITE BLOOD COUNT (AUTO) 11.7 K/uL (4.3-11.0)
[2021-11-02 09:15] LABS: ALANINE AMINOTRANSFERASE 24 U/L (12-78); ALBUMIN 3.5 g/dL (3.4-5.0); ALCOHOL, BLOOD < 3 mg/dL (0-0); ALKALINE PHOSPHATASE 99 U/L (46-116); ASPARTATE AMINOTRANSFERASE 17 U/L (15-37); BILIRUBIN,DIRECT 0.1 mg/dL (0.0-0.2); BILIRUBIN,TOTAL 0.2 mg/dL (0.2-1.0); CALCIUM, SERUM 8.9 mg/dL (8.5-10.1); CARBON DIOXIDE 28 mmol/L (21-32); CHLORIDE 103 mmol/L (98-107); CREATININE 0.9 mg/dL (0.6-1.3); GLUCOSE 102 mg/dL (74-106); POTASSIUM 3.8 mmol/L (3.5-5.1); SODIUM SERUM 139 mmol/L (136-145); TOTAL PROTEIN, SERUM 8.2 g/dL (6.4-8.2); UREA NITROGEN, BLOOD 18 mg/dL (7-18)
[2021-11-02 09:17] LABS: ACETAMINOPHEN 0 ug/ml (10-30)
--- NOTE | 2021-11-02 09:28 | NUR ---
faxed clinicals to bridget rosario
[2021-11-02 09:34] LABS: BACTERIA,URINE Few /HPF (None Seen); RBC,URINE 0-2 /HPF (0-2); SQUAMOUS EPITHELIAL CELL,UR Few /HPF (None Seen); WBC,URINE 0-2 /HPF (0-3)
--- NOTE | 2021-11-02 10:54 | NUR ---
CALLED [facility] (SPOKE WITH [facility]) TO FOLLOW UP WITH PT ADMISSION AND WAS NOTIFIED THAT THE PT IS STILL AWAITING FEEDBACK FROM [employer]IEF SALES OFFICER FOR A BED.
--- NOTE | 2021-11-02 16:53 | NUR ---
PT STATES HE NO LONGER WANTS TO WAIT. FEELING MUCH BETTER AND IS NO LONGER SUICIDAL. PT STATES WILL STAY AT A FRIENDS HOUSE. DR CHU MADE AWARE. DISCHARGE IN STABLE CONDITION.
[2021-11-02 16:55] VITALS: BP 148/77
== END 2021-11-02 16:56 | disposition home or self-care (01) ==
LOC: ER 08:18
DX: R45.851 Suicidal ideations (principal); F12.90 Cannabis use, unspecified, uncomplicated; F20.9 Schizophrenia, unspecified; I10 Essential (primary) hypertension; E11.9 Type 2 diabetes mellitus without complications; Z88.8 Allergy status to other drugs, medicaments and biological substances; Z60.2 Problems related to living alone; Z79.899 Other long term (current) drug therapy
CPT/HCPCS: 36415; 80048-TC; 80076-TC; 81001; 85025-TC; G0480

== ENCOUNTER 2023-02-01 12:49 | Emergency (ER) | payer MEDICARE, OTHER ==
[~2023-02-01] VITALS: Ht 175.3 cm; Wt 145.6 kg
[2023-02-01 13:25] VITALS: BP 148/72
[2023-02-01 14:27] LABS: BILIRUBIN,URINE 1+ (NEGATIVE); COLOR,URINE YELLOW (YELLOW); LEUKOCYTE ESTERASE ,URINE NEGATIVE (NEGATIVE); NITRITE, URINE NEGATIVE (NEGATIVE); PH,URINE 6.5 (5.0-8.0); PROTEIN,URINE NEGATIVE (NEGATIVE); UGLUCOSE NEGATIVE (NEGATIVE)
[2023-02-01 15:06] LABS: CALCIUM, SERUM 9.2 mg/dL (8.5-10.1); CARBON DIOXIDE 26 mmol/L (21-32); CHLORIDE 107 mmol/L (98-107); CREATININE 0.7 mg/dL (0.6-1.3); GLUCOSE 91 mg/dL (74-106); POTASSIUM 3.1 mmol/L (3.5-5.1); SODIUM SERUM 141 mmol/L (136-145); UREA NITROGEN, BLOOD 12 mg/dL (7-18)
[2023-02-01 15:12] LABS: ALANINE AMINOTRANSFERASE 34 U/L (12-78); ALBUMIN 3.4 g/dL (3.4-5.0); ALCOHOL, BLOOD < 3 mg/dL (0-10); ALKALINE PHOSPHATASE 112 U/L (46-116); ASPARTATE AMINOTRANSFERASE 22 U/L (15-37); BILIRUBIN,DIRECT 0.1 mg/dL (0.0-0.2); BILIRUBIN,TOTAL 0.2 mg/dL (0.2-1.0); TOTAL PROTEIN, SERUM 7.9 g/dL (6.4-8.2)
[2023-02-01 15:23] LABS: BASOPHILS # (AUTO) 0.1 K/uL (0.0-0.2); BASOPHILS % (AUTO) 0.8 % (0.0-2.0); EOSINOPHILS % (AUTO) 3.1 % (0.0-6.0); HEMATOCRIT 43 % (39-51); HEMOGLOBIN 13.7 g/dL (13.5-17.5); LYMPHOCYTES # (AUTO) 2.6 K/uL (0.8-4.8); LYMPHOCYTES % (AUTO) 38.9 % (20.0-44.0); MEAN CORPUSCULAR HGB CONC 32 g/dl (31.0-36.0); MEAN CORPUSCULAR VOLUME 93 fL (80-96); MONOCYTES # (AUTO) 0.5 K/uL (0.1-1.30); MONOCYTES % (AUTO) 8.3 % (2.0-12.0); NEUTROPHILS # (AUTO) 3.3 K/uL (1.8-8.9); NEUTROPHILS % (AUTO) 48.9 % (43.0-81.0); PLATELET COUNT (AUTO) 210 K/uL (150-450); RED BLOOD CELL COUNT(AUTO) 4.55 MIL/uL (4.5-6.0); WHITE BLOOD COUNT (AUTO) 6.6 K/uL (4.3-11.0)
[2023-02-01] MEDS ORDERED: POTASSIUM CHLORIDE 20 MEQ TAB.PRT.SR PO ONE ×2 (15:30→15:35)
[2023-02-01 15:33] LABS: BACTERIA,URINE None seen /HPF (None Seen); RBC,URINE 0-2 /HPF (0-2); SQUAMOUS EPITHELIAL CELL,UR 0-2 /HPF (None Seen); WBC,URINE 0-2 /HPF (0-3)
[2023-02-01 15:34] LABS: URINE AMORPHOUS URATE Many /HPF (None Seen)
== END 2023-02-01 19:17 ==
LOC: ER 12:52
DX: R45.851 Suicidal ideations (principal); I10 Essential (primary) hypertension; E11.9 Type 2 diabetes mellitus without complications; F20.0 Paranoid schizophrenia; F17.200 Nicotine dependence, unspecified, uncomplicated; Z88.8 Allergy status to other drugs, medicaments and biological substances; Z60.2 Problems related to living alone; Z20.822 Contact with and (suspected) exposure to COVID-19
CPT/HCPCS: 36415; 80048-TC; 80076-TC; 81001; 85025-TC; C9803; G0480

== ENCOUNTER → 2023-02-07 | Emergency (ER) | payer MEDICARE ==
[~2023-02-07] VITALS: Ht 175.3 cm; Wt 124.7 kg
--- NOTE | 2023-02-07 06:03 | NUR ---
Johnny c/o med clearance, req vol psych admit: denies si/hi, paranoid someone out to get him. PT a/ox3. Tolerating R/A well with no resp distress. Pt in gown, belongings collected, wanded by security. Safety Measures in place.
--- NOTE | 2023-02-07 06:09 | NUR ---
COVID ANTIGEN AND URINE COLLECTED AND SENT TO LAB
[2023-02-07 06:33] LABS: BILIRUBIN,URINE NEGATIVE (NEGATIVE); COLOR,URINE YELLOW (YELLOW); LEUKOCYTE ESTERASE ,URINE NEGATIVE (NEGATIVE); NITRITE, URINE NEGATIVE (NEGATIVE); PROTEIN,URINE NEGATIVE (NEGATIVE); UGLUCOSE NEGATIVE (NEGATIVE)
[2023-02-07 06:39] LABS: BASOPHILS % (AUTO) 0.5 % (0.0-2.0); EOSINOPHILS % (AUTO) 2.1 % (0.0-6.0); HEMATOCRIT 42 % (39-51); HEMOGLOBIN 13.5 g/dL (13.5-17.5); LYMPHOCYTES # (AUTO) 2.1 K/uL (0.8-4.8); LYMPHOCYTES % (AUTO) 25.7 % (20.0-44.0); MEAN CORPUSCULAR HGB CONC 32 g/dl (31.0-36.0); MEAN CORPUSCULAR VOLUME 93 fL (80-96); MONOCYTES # (AUTO) 0.8 K/uL (0.1-1.30); MONOCYTES % (AUTO) 9.8 % (2.0-12.0); NEUTROPHILS # (AUTO) 5.1 K/uL (1.8-8.9); NEUTROPHILS % (AUTO) 61.9 % (43.0-81.0); PLATELET COUNT (AUTO) 243 K/uL (150-450); RED BLOOD CELL COUNT(AUTO) 4.46 MIL/uL (4.5-6.0); WHITE BLOOD COUNT (AUTO) 8.2 K/uL (4.3-11.0)
[2023-02-07 06:54] LABS: CALCIUM, SERUM 9.5 mg/dL (8.5-10.1); CARBON DIOXIDE 24 mmol/L (21-32); CHLORIDE 107 mmol/L (98-107); CREATININE 0.8 mg/dL (0.6-1.3); GLUCOSE 111 mg/dL (74-106); SODIUM SERUM 141 mmol/L (136-145); UREA NITROGEN, BLOOD 14 mg/dL (7-18)
[2023-02-07 06:58] LABS: ALANINE AMINOTRANSFERASE 37 U/L (12-78); ALBUMIN 3.5 g/dL (3.4-5.0); ALKALINE PHOSPHATASE 94 U/L (46-116); ASPARTATE AMINOTRANSFERASE 22 U/L (15-37); BILIRUBIN,DIRECT 0.1 mg/dL (0.0-0.2); BILIRUBIN,TOTAL 0.2 mg/dL (0.2-1.0); TOTAL PROTEIN, SERUM 8.2 g/dL (6.4-8.2)
[2023-02-07 07:00] LABS: ALCOHOL, BLOOD < 3 mg/dL (0-10)
--- NOTE | 2023-02-07 07:53 | NUR ---
SENT PT FACE SHEET TO [facility]
--- NOTE | 2023-02-07 16:03 | NUR ---
WAS NOTIFIED BY [facility] THAT THE PT IS A DO NOT ADMIT AT THAT FACILITY WILL TRY [place]
--- NOTE | 2023-02-07 18:05 | NUR ---
[facility] CALLED WITH ACCEPTANCE PT IS GOING TO [facility] UNIT P-6 NUMBER FOR REPORT [phone]
--- NOTE | 2023-02-07 18:08 | NUR ---
CALLED [facility] AND SET UP S TRANSPORT ETA [phone]
[2023-02-07 18:37] VITALS: BP 141/96
--- NOTE | 2023-02-07 18:39 | NUR ---
REPORT GIVEN TO EMMA [facility]
== END ==
LOC: ER 05:32
DX: F22 Delusional disorders (principal); I10 Essential (primary) hypertension; E11.9 Type 2 diabetes mellitus without complications; F17.200 Nicotine dependence, unspecified, uncomplicated; Z20.822 Contact with and (suspected) exposure to COVID-19; Z60.2 Problems related to living alone; Z79.899 Other long term (current) drug therapy; Z88.1 Allergy status to other antibiotic agents
CPT/HCPCS: 36415; 80048-TC; 80076-TC; 85025-TC; C9803; G0480

== ENCOUNTER 2023-03-26 02:45 | Emergency (ER) | payer MEDICARE, OTHER ==
[~2023-03-26] VITALS: Ht 177.8 cm; Wt 127.0 kg
[2023-03-26 04:40] LABS: BASOPHILS # (AUTO) 0.1 K/uL (0.0-0.2); BASOPHILS % (AUTO) 0.6 % (0.0-2.0); EOSINOPHILS # (AUTO) 0.1 K/uL (0.0-0.7); EOSINOPHILS % (AUTO) 0.7 % (0.0-6.0); HEMATOCRIT 40 % (39-51); HEMOGLOBIN 13.3 g/dL (13.5-17.5); LYMPHOCYTES # (AUTO) 3.1 K/uL (0.8-4.8); LYMPHOCYTES % (AUTO) 28.3 % (20.0-44.0); MEAN CORPUSCULAR HEMOGLOBIN 30 PG (26.0-33.0); MEAN CORPUSCULAR HGB CONC 33 g/dl (31.0-36.0); MEAN CORPUSCULAR VOLUME 91 fL (80-96); MONOCYTES # (AUTO) 1.2 K/uL (0.1-1.30); MONOCYTES % (AUTO) 10.6 % (2.0-12.0); NEUTROPHILS # (AUTO) 6.6 K/uL (1.8-8.9); NEUTROPHILS % (AUTO) 59.8 % (43.0-81.0); PLATELET COUNT (AUTO) 268 K/uL (150-450); RED BLOOD CELL COUNT(AUTO) 4.37 MIL/uL (4.5-6.0); RED CELL DISTRIBUTION WIDTH 14.9 % (11.5-15.0)
[2023-03-26 04:46] LABS: APPEARANCE,URINE CLEAR (CLEAR); BILIRUBIN,URINE NEGATIVE (NEGATIVE); BLOOD, URINE 1+ Ery/uL (NEGATIVE); COLOR,URINE YELLOW (YELLOW); KETONES,URINE NEGATIVE (NEGATIVE); LEUKOCYTE ESTERASE ,URINE NEGATIVE (NEGATIVE); NITRITE, URINE NEGATIVE (NEGATIVE); PH,URINE 5.5 (5.0-8.0); PROTEIN,URINE NEGATIVE (NEGATIVE); UGLUCOSE NEGATIVE (NEGATIVE); UROBILINOGEN,URINE 0.2 EU/dL (0.2)
[2023-03-26 04:53] LABS: CALCIUM, SERUM 10.5 mg/dL (8.5-10.1); CARBON DIOXIDE 25 mmol/L (21-32); CHLORIDE 106 mmol/L (98-107); CREATININE 0.8 mg/dL (0.6-1.3); GLUCOSE 126 mg/dL (74-106); POTASSIUM 3.9 mmol/L (3.5-5.1); SODIUM SERUM 142 mmol/L (136-145); UREA NITROGEN, BLOOD 17 mg/dL (7-18)
[2023-03-26 04:56] LABS: ADD URINE CULTURE NO; AMPHETAMINE, URINE NEGATIVE (NEGATIVE); BACTERIA,URINE None seen /HPF (None Seen); BARBITURATE, URINE NEGATIVE (NEGATIVE); BENZODIAZEPINE, URINE NEGATIVE (NEGATIVE); COCCAINE, URINE NEGATIVE (NEGATIVE); OPIATE, URINE NEGATIVE (NEGATIVE); PHENCYCLIDINE SCREEN,URINE NEGATIVE (NEGATIVE); SQUAMOUS EPITHELIAL CELL,UR None Seen /HPF (None Seen); WBC,URINE 0-2 /HPF (0-3)
[2023-03-26 04:57] LABS: CANNABINOID, URINE POSITIVE (NEGATIVE)
[2023-03-26 04:59] LABS: ALANINE AMINOTRANSFERASE 26 U/L (12-78); ALBUMIN 3.8 g/dL (3.4-5.0); ALCOHOL, BLOOD < 3 mg/dL (0-10); ALKALINE PHOSPHATASE 112 U/L (46-116); ASPARTATE AMINOTRANSFERASE 18 U/L (15-37); BILIRUBIN,DIRECT 0.1 mg/dL (0.0-0.2); BILIRUBIN,TOTAL 0.3 mg/dL (0.2-1.0); TOTAL PROTEIN, SERUM 8.9 g/dL (6.4-8.2)
[2023-03-26 05:03] LABS: ACETAMINOPHEN <10 ug/ml (10-30); SALICYLATE < 2.3 mg/dL (2.8-20.0)
[2023-03-26 16:15] VITALS: BP 146/97; TEMP 98; O2SAT 98
== END 2023-03-26 12:34 | disposition home or self-care (01) ==
LOC: ER 02:48
DX: R45.851 Suicidal ideations (principal); F12.90 Cannabis use, unspecified, uncomplicated; I10 Essential (primary) hypertension; E11.9 Type 2 diabetes mellitus without complications; F20.0 Paranoid schizophrenia; F17.200 Nicotine dependence, unspecified, uncomplicated; Z88.8 Allergy status to other drugs, medicaments and biological substances; Z60.2 Problems related to living alone; Z20.822 Contact with and (suspected) exposure to COVID-19
CPT/HCPCS: 36415; 80048-TC; 80076-TC; 81001; 85025-TC; C9803; G0480

== ENCOUNTER 2023-03-28 00:59 | Emergency (ER) | payer MEDICARE, OTHER ==
[~2023-03-28] VITALS: Ht 175.3 cm; Wt 143.8 kg
[2023-03-28 03:46] LABS: BASOPHILS # (AUTO) 0.1 K/uL (0.0-0.2); BASOPHILS % (AUTO) 0.8 % (0.0-2.0); EOSINOPHILS # (AUTO) 0.1 K/uL (0.0-0.7); EOSINOPHILS % (AUTO) 1.3 % (0.0-6.0); HEMATOCRIT 42 % (39-51); LYMPHOCYTES # (AUTO) 3.1 K/uL (0.8-4.8); LYMPHOCYTES % (AUTO) 34.2 % (20.0-44.0); MEAN CORPUSCULAR HEMOGLOBIN 31 PG (26.0-33.0); MEAN CORPUSCULAR HGB CONC 33 g/dl (31.0-36.0); MEAN CORPUSCULAR VOLUME 93 fL (80-96); MONOCYTES # (AUTO) 0.8 K/uL (0.1-1.30); MONOCYTES % (AUTO) 8.5 % (2.0-12.0); NEUTROPHILS # (AUTO) 5.1 K/uL (1.8-8.9); NEUTROPHILS % (AUTO) 55.2 % (43.0-81.0); PLATELET COUNT (AUTO) 261 K/uL (150-450); RED BLOOD CELL COUNT(AUTO) 4.52 MIL/uL (4.5-6.0); RED CELL DISTRIBUTION WIDTH 15.4 % (11.5-15.0); WHITE BLOOD COUNT (AUTO) 9.2 K/uL (4.3-11.0)
[2023-03-28 03:51] LABS: APPEARANCE,URINE CLEAR (CLEAR); BILIRUBIN,URINE NEGATIVE (NEGATIVE); BLOOD, URINE TRACE-INTA Ery/uL (NEGATIVE); COLOR,URINE YELLOW (YELLOW); KETONES,URINE NEGATIVE (NEGATIVE); LEUKOCYTE ESTERASE ,URINE NEGATIVE (NEGATIVE); NITRITE, URINE NEGATIVE (NEGATIVE); PROTEIN,URINE TRACE mg/dl (NEGATIVE); UGLUCOSE NEGATIVE (NEGATIVE); UROBILINOGEN,URINE 0.2 EU/dL (0.2)
[2023-03-28 03:56] LABS: ALANINE AMINOTRANSFERASE 32 U/L (12-78); ALBUMIN 3.8 g/dL (3.4-5.0); ALCOHOL, BLOOD < 3 mg/dL (0-10); ALKALINE PHOSPHATASE 115 U/L (46-116); ASPARTATE AMINOTRANSFERASE 24 U/L (15-37); BILIRUBIN,DIRECT 0.1 mg/dL (0.0-0.2); BILIRUBIN,TOTAL 0.5 mg/dL (0.2-1.0); CALCIUM, SERUM 9.8 mg/dL (8.5-10.1); CARBON DIOXIDE 27 mmol/L (21-32); CHLORIDE 106 mmol/L (98-107); CREATININE 0.5 mg/dL (0.6-1.3); GLUCOSE 112 mg/dL (74-106); POTASSIUM 3.5 mmol/L (3.5-5.1); SODIUM SERUM 141 mmol/L (136-145); UREA NITROGEN, BLOOD 15 mg/dL (7-18)
[2023-03-28 04:02] LABS: ACETAMINOPHEN <10 ug/ml (10-30); SALICYLATE < 2.3 mg/dL (2.8-20.0)
[2023-03-28 04:11] LABS: AMPHETAMINE, URINE NEGATIVE (NEGATIVE); BARBITURATE, URINE NEGATIVE (NEGATIVE); BENZODIAZEPINE, URINE NEGATIVE (NEGATIVE); COCCAINE, URINE NEGATIVE (NEGATIVE); OPIATE, URINE NEGATIVE (NEGATIVE); PHENCYCLIDINE SCREEN,URINE NEGATIVE (NEGATIVE)
[2023-03-28 04:20] LABS: CANNABINOID, URINE POSITIVE (NEGATIVE)
[2023-03-28 10:08] VITALS: BP 136/89; TEMP 98; O2SAT 98
== END 2023-03-28 10:09 | disposition home or self-care (01) ==
LOC: ER 01:05
DX: F32.A Depression, unspecified (principal); I10 Essential (primary) hypertension; E11.9 Type 2 diabetes mellitus without complications; F20.0 Paranoid schizophrenia; F17.200 Nicotine dependence, unspecified, uncomplicated; Z88.8 Allergy status to other drugs, medicaments and biological substances; Z60.2 Problems related to living alone; Z20.822 Contact with and (suspected) exposure to COVID-19
CPT/HCPCS: 36415; 80048-TC; 80076-TC; 85025-TC; C9803; G0480

== ENCOUNTER 2023-03-31 05:23 | Emergency (ER) | payer MEDICARE, OTHER ==
[~2023-03-31] VITALS: Ht 180.3 cm; Wt 142.9 kg
[2023-03-31 06:32] LABS: APPEARANCE,URINE CLEAR (CLEAR); BILIRUBIN,URINE NEGATIVE (NEGATIVE); BLOOD, URINE NEGATIVE Ery/uL (NEGATIVE); COLOR,URINE YELLOW (YELLOW); KETONES,URINE NEGATIVE (NEGATIVE); LEUKOCYTE ESTERASE ,URINE NEGATIVE (NEGATIVE); NITRITE, URINE NEGATIVE (NEGATIVE); PROTEIN,URINE TRACE mg/dl (NEGATIVE); UGLUCOSE NEGATIVE (NEGATIVE); UROBILINOGEN,URINE 0.2 EU/dL (0.2)
[2023-03-31 06:35] LABS: AMPHETAMINE, URINE NEGATIVE (NEGATIVE); BARBITURATE, URINE NEGATIVE (NEGATIVE); BENZODIAZEPINE, URINE NEGATIVE (NEGATIVE); CANNABINOID, URINE POSITIVE (NEGATIVE); COCCAINE, URINE NEGATIVE (NEGATIVE); OPIATE, URINE NEGATIVE (NEGATIVE); PHENCYCLIDINE SCREEN,URINE NEGATIVE (NEGATIVE)
[2023-03-31 07:33] LABS: RBC,URINE NONE SEEN /HPF (0-2)
[2023-03-31 07:34] LABS: ADD URINE CULTURE NO; SQUAMOUS EPITHELIAL CELL,UR Rare /HPF (None Seen)
[2023-03-31 07:34] LABS: BASOPHILS % (AUTO) 0.3 % (0.0-2.0); EOSINOPHILS # (AUTO) 0.1 K/uL (0.0-0.7); EOSINOPHILS % (AUTO) 1.4 % (0.0-6.0); HEMATOCRIT 40 % (39-51); HEMOGLOBIN 13.1 g/dL (13.5-17.5); LYMPHOCYTES # (AUTO) 1.8 K/uL (0.8-4.8); LYMPHOCYTES % (AUTO) 28.8 % (20.0-44.0); MEAN CORPUSCULAR HEMOGLOBIN 30 PG (26.0-33.0); MEAN CORPUSCULAR HGB CONC 33 g/dl (31.0-36.0); MEAN CORPUSCULAR VOLUME 93 fL (80-96); MONOCYTES # (AUTO) 0.5 K/uL (0.1-1.30); MONOCYTES % (AUTO) 8.4 % (2.0-12.0); NEUTROPHILS # (AUTO) 3.9 K/uL (1.8-8.9); NEUTROPHILS % (AUTO) 61.1 % (43.0-81.0); PLATELET COUNT (AUTO) 221 K/uL (150-450); RED BLOOD CELL COUNT(AUTO) 4.33 MIL/uL (4.5-6.0); RED CELL DISTRIBUTION WIDTH 15.1 % (11.5-15.0); WHITE BLOOD COUNT (AUTO) 6.4 K/uL (4.3-11.0)
[2023-03-31 07:35] LABS: BACTERIA,URINE Rare /HPF (None Seen)
[2023-03-31 07:41] LABS: CALCIUM, SERUM 9.2 mg/dL (8.5-10.1); CARBON DIOXIDE 24 mmol/L (21-32); CHLORIDE 106 mmol/L (98-107); CREATININE 0.6 mg/dL (0.6-1.3); GLUCOSE 127 mg/dL (74-106); POTASSIUM 3.1 mmol/L (3.5-5.1); SODIUM SERUM 142 mmol/L (136-145); UREA NITROGEN, BLOOD 14 mg/dL (7-18)
[2023-03-31 07:47] LABS: ALANINE AMINOTRANSFERASE 29 U/L (12-78); ALBUMIN 3.4 g/dL (3.4-5.0); ALCOHOL, BLOOD 58 mg/dL (0-10); ALKALINE PHOSPHATASE 103 U/L (46-116); ASPARTATE AMINOTRANSFERASE 25 U/L (15-37); BILIRUBIN,DIRECT 0.1 mg/dL (0.0-0.2); BILIRUBIN,TOTAL 0.4 mg/dL (0.2-1.0); TOTAL PROTEIN, SERUM 8.2 g/dL (6.4-8.2)
[2023-03-31 07:49] LABS: SALICYLATE < 2.3 mg/dL (2.8-20.0)
[2023-03-31 07:50] LABS: ACETAMINOPHEN <10 ug/ml (10-30)
[2023-03-31 08:14] VITALS: BP 146/84; TEMP 98; O2SAT 99
[2023-03-31] MEDS ORDERED: LORAZEPAM 1 MG TABLET PO ONE (11:00)
== END 2023-03-31 11:28 | disposition left against medical advice (07) ==
LOC: ER 05:31
DX: R45.851 Suicidal ideations (principal); F32.A Depression, unspecified; F19.10 Other psychoactive substance abuse, uncomplicated; I10 Essential (primary) hypertension; E11.9 Type 2 diabetes mellitus without complications; R20.0 Anesthesia of skin; F17.200 Nicotine dependence, unspecified, uncomplicated; Z20.822 Contact with and (suspected) exposure to COVID-19; Z79.899 Other long term (current) drug therapy; Z60.2 Problems related to living alone; Z88.1 Allergy status to other antibiotic agents
CPT/HCPCS: 36415; 80048-TC; 80076-TC; 81001; 85025-TC; C9803; G0480

== ENCOUNTER 2023-04-01 07:17 | Emergency (ER) | payer MEDICARE, OTHER ==
[~2023-04-01] VITALS: Ht 175.3 cm; Wt 143.8 kg
[2023-04-01 08:10] LABS: BASOPHILS # (AUTO) 0.1 K/uL (0.0-0.2); BASOPHILS % (AUTO) 0.7 % (0.0-2.0); EOSINOPHILS # (AUTO) 0.2 K/uL (0.0-0.7); EOSINOPHILS % (AUTO) 1.8 % (0.0-6.0); HEMATOCRIT 42 % (39-51); HEMOGLOBIN 13.8 g/dL (13.5-17.5); LYMPHOCYTES # (AUTO) 2.4 K/uL (0.8-4.8); LYMPHOCYTES % (AUTO) 24.9 % (20.0-44.0); MEAN CORPUSCULAR HEMOGLOBIN 30 PG (26.0-33.0); MEAN CORPUSCULAR HGB CONC 32 g/dl (31.0-36.0); MEAN CORPUSCULAR VOLUME 94 fL (80-96); MONOCYTES # (AUTO) 0.7 K/uL (0.1-1.30); MONOCYTES % (AUTO) 7.5 % (2.0-12.0); NEUTROPHILS # (AUTO) 6.3 K/uL (1.8-8.9); NEUTROPHILS % (AUTO) 65.1 % (43.0-81.0); PLATELET COUNT (AUTO) 258 K/uL (150-450); RED BLOOD CELL COUNT(AUTO) 4.53 MIL/uL (4.5-6.0); RED CELL DISTRIBUTION WIDTH 15.4 % (11.5-15.0); WHITE BLOOD COUNT (AUTO) 9.7 K/uL (4.3-11.0)
[2023-04-01 08:35] LABS: CALCIUM, SERUM 9.8 mg/dL (8.5-10.1); CARBON DIOXIDE 23 mmol/L (21-32); CHLORIDE 104 mmol/L (98-107); CREATININE 0.8 mg/dL (0.6-1.3); GLUCOSE 124 mg/dL (74-106); POTASSIUM 3.5 mmol/L (3.5-5.1); SODIUM SERUM 141 mmol/L (136-145); UREA NITROGEN, BLOOD 16 mg/dL (7-18)
[2023-04-01 08:43] LABS: ALANINE AMINOTRANSFERASE 31 U/L (12-78); ALBUMIN 3.7 g/dL (3.4-5.0); ALCOHOL, BLOOD < 3 mg/dL (0-10); ALKALINE PHOSPHATASE 114 U/L (46-116); ASPARTATE AMINOTRANSFERASE 38 U/L (15-37); BILIRUBIN,DIRECT 0.1 mg/dL (0.0-0.2); BILIRUBIN,TOTAL 0.5 mg/dL (0.2-1.0); SALICYLATE < 2.3 mg/dL (2.8-20.0); TOTAL PROTEIN, SERUM 8.8 g/dL (6.4-8.2)
[2023-04-01 08:44] LABS: ACETAMINOPHEN 0 ug/ml (10-30)
[2023-04-01 09:29] LABS: AMPHETAMINE, URINE NEGATIVE (NEGATIVE); BARBITURATE, URINE NEGATIVE (NEGATIVE); BENZODIAZEPINE, URINE NEGATIVE (NEGATIVE); COCCAINE, URINE NEGATIVE (NEGATIVE); OPIATE, URINE NEGATIVE (NEGATIVE); PHENCYCLIDINE SCREEN,URINE NEGATIVE (NEGATIVE)
[2023-04-01 09:31] LABS: CANNABINOID, URINE POSITIVE (NEGATIVE)
[2023-04-01 09:41] LABS: APPEARANCE,URINE CLEAR (CLEAR); BILIRUBIN,URINE 1+ (NEGATIVE); BLOOD, URINE TRACE-INTA Ery/uL (NEGATIVE); COLOR,URINE DARK YELLOW (YELLOW); KETONES,URINE TRACE mg/dL (NEGATIVE); LEUKOCYTE ESTERASE ,URINE NEGATIVE (NEGATIVE); NITRITE, URINE NEGATIVE (NEGATIVE); PH,URINE 5.5 (5.0-8.0); PROTEIN,URINE TRACE mg/dl (NEGATIVE); UGLUCOSE NEGATIVE (NEGATIVE); UROBILINOGEN,URINE 0.2 EU/dL (0.2)
[2023-04-01 09:44] LABS: ADD URINE CULTURE NO; BACTERIA,URINE Rare /HPF (None Seen); SQUAMOUS EPITHELIAL CELL,UR Few /HPF (None Seen); WBC,URINE 0-2 /HPF (0-3)
[2023-04-01] MEDS ORDERED: OLANZAPINE ZYDIS 5 MG TAB.RAPDIS PO ONE (12:00)
[2023-04-01] MEDS ORDERED: OLANZAPINE 5 MG TABLET ONE (12:05)
[2023-04-01 20:19] VITALS: BP 150/98; TEMP 98.7; O2SAT 100
== END 2023-04-01 20:22 | disposition short-term general hospital (02) ==
LOC: ER 07:25
DX: R45.851 Suicidal ideations (principal); F29 Unspecified psychosis not due to a substance or known physiological condition; I10 Essential (primary) hypertension; E11.9 Type 2 diabetes mellitus without complications; F20.0 Paranoid schizophrenia; F17.200 Nicotine dependence, unspecified, uncomplicated; Z88.8 Allergy status to other drugs, medicaments and biological substances; Z60.2 Problems related to living alone; Z20.822 Contact with and (suspected) exposure to COVID-19
CPT/HCPCS: 36415; 80048-TC; 80076-TC; 81001; 85025-TC; C9803; G0480

== ENCOUNTER 2023-07-09 01:32 | Emergency (ER) | payer MEDICARE, OTHER ==
[~2023-07-09] VITALS: Ht 175.3 cm; Wt 155.6 kg
[2023-07-09 02:07] VITALS: TEMP 98
[2023-07-09 04:21] LABS: BASOPHILS % (AUTO) 0.5 % (0.0-2.0); EOSINOPHILS # (AUTO) 0.1 K/uL (0.0-0.7); EOSINOPHILS % (AUTO) 0.9 % (0.0-6.0); HEMATOCRIT 48 % (39-51); LYMPHOCYTES % (AUTO) 36.2 % (20.0-44.0); MEAN CORPUSCULAR HEMOGLOBIN 31 PG (26.0-33.0); MEAN CORPUSCULAR HGB CONC 34 g/dl (31.0-36.0); MEAN CORPUSCULAR VOLUME 93 fL (80-96); MONOCYTES # (AUTO) 0.8 K/uL (0.1-1.30); MONOCYTES % (AUTO) 9.7 % (2.0-12.0); NEUTROPHILS # (AUTO) 4.4 K/uL (1.8-8.9); NEUTROPHILS % (AUTO) 52.7 % (43.0-81.0); PLATELET COUNT (AUTO) 207 K/uL (150-450); RED BLOOD CELL COUNT(AUTO) 5.11 MIL/uL (4.5-6.0); RED CELL DISTRIBUTION WIDTH 15.2 % (11.5-15.0); WHITE BLOOD COUNT (AUTO) 8.4 K/uL (4.3-11.0)
[2023-07-09 04:26] LABS: ALANINE AMINOTRANSFERASE 40 U/L (12-78); ALCOHOL, BLOOD < 3 mg/dL (0-10); ALKALINE PHOSPHATASE 143 U/L (46-116); ASPARTATE AMINOTRANSFERASE 66 U/L (15-37); BILIRUBIN,DIRECT 0.1 mg/dL (0.0-0.2); BILIRUBIN,TOTAL 0.8 mg/dL (0.2-1.0); CALCIUM, SERUM 10.5 mg/dL (8.5-10.1); CARBON DIOXIDE 23 mmol/L (21-32); CREATININE 0.9 mg/dL (0.6-1.3); GLUCOSE 80 mg/dL (74-106); TOTAL PROTEIN, SERUM 10.9 g/dL (6.4-8.2); UREA NITROGEN, BLOOD 16 mg/dL (7-18)
[2023-07-09 04:41] LABS: ACETAMINOPHEN 29 ug/ml (10-30)
[2023-07-09 05:00] LABS: ALBUMIN 4.4 g/dL (3.4-5.0); CHLORIDE 103 mmol/L (98-107); POTASSIUM 3.1 mmol/L (3.5-5.1); SODIUM SERUM 139 mmol/L (136-145)
[2023-07-09 05:14] LABS: SALICYLATE 1.9 mg/dL (2.8-20.0)
[2023-07-09 05:28] LABS: APPEARANCE,URINE SLIGHTLY CLOUDY (CLEAR); COLOR,URINE YELLOW (YELLOW); PH,URINE 5.5 (5.0-8.0); PROTEIN,URINE 2+ mg/dl (NEGATIVE); UGLUCOSE NEGATIVE (NEGATIVE)
[2023-07-09 05:29] LABS: BILIRUBIN,URINE 2+ (NEGATIVE); BLOOD, URINE 1+ Ery/uL (NEGATIVE); KETONES,URINE NEGATIVE (NEGATIVE); LEUKOCYTE ESTERASE ,URINE NEGATIVE (NEGATIVE); NITRITE, URINE NEGATIVE (NEGATIVE)
[2023-07-09 05:30] LABS: ADD URINE CULTURE NO; BACTERIA,URINE 1+ /HPF (None Seen); MUCUS,URINE Moderate /LPF (None Seen); RBC,URINE 0-2 /HPF (0-2); SQUAMOUS EPITHELIAL CELL,UR None Seen /HPF (None Seen); WBC,URINE 0-2 /HPF (0-3)
[2023-07-09 07:40] LABS: AMPHETAMINE, URINE NEGATIVE (NEGATIVE); BARBITURATE, URINE NEGATIVE (NEGATIVE); BENZODIAZEPINE, URINE NEGATIVE (NEGATIVE); CANNABINOID, URINE POSITIVE (NEGATIVE); COCCAINE, URINE NEGATIVE (NEGATIVE); OPIATE, URINE NEGATIVE (NEGATIVE); PHENCYCLIDINE SCREEN,URINE NEGATIVE (NEGATIVE)
[2023-07-09 11:07] VITALS: BP 144/90; O2SAT 98
== END 2023-07-09 11:10 ==
LOC: ER 01:41
DX: F32.A Depression, unspecified (principal); I10 Essential (primary) hypertension; E11.9 Type 2 diabetes mellitus without complications; F20.0 Paranoid schizophrenia; Z88.8 Allergy status to other drugs, medicaments and biological substances; Z60.2 Problems related to living alone; Z20.822 Contact with and (suspected) exposure to COVID-19
CPT/HCPCS: 36415; 80048-TC; 80076-TC; 81001; 85025-TC; C9803; G0480

== ENCOUNTER 2023-08-18 01:42 | Emergency (ER) | payer MEDICARE, MEDICAID ==
[~2023-08-18] VITALS: Ht 172.7 cm; Wt 70.3 kg
[2023-08-18 02:12] VITALS: TEMP 98
[2023-08-18 02:58] LABS: BASOPHILS % (AUTO) 0.5 % (0.0-2.0); EOSINOPHILS # (AUTO) 0.1 K/uL (0.0-0.7); EOSINOPHILS % (AUTO) 1.1 % (0.0-6.0); HEMATOCRIT 42 % (39-51); HEMOGLOBIN 13.8 g/dL (13.5-17.5); LYMPHOCYTES # (AUTO) 1.7 K/uL (0.8-4.8); LYMPHOCYTES % (AUTO) 20.4 % (20.0-44.0); MEAN CORPUSCULAR HEMOGLOBIN 31 PG (26.0-33.0); MEAN CORPUSCULAR HGB CONC 33 g/dl (31.0-36.0); MEAN CORPUSCULAR VOLUME 94 fL (80-96); MONOCYTES # (AUTO) 0.7 K/uL (0.1-1.30); NEUTROPHILS # (AUTO) 5.8 K/uL (1.8-8.9); PLATELET COUNT (AUTO) 211 K/uL (150-450); RED BLOOD CELL COUNT(AUTO) 4.45 MIL/uL (4.5-6.0); WHITE BLOOD COUNT (AUTO) 8.3 K/uL (4.3-11.0)
[2023-08-18 03:04] LABS: APPEARANCE,URINE CLEAR (CLEAR); BILIRUBIN,URINE NEGATIVE (NEGATIVE); BLOOD, URINE NEGATIVE Ery/uL (NEGATIVE); COLOR,URINE DARK YELLOW (YELLOW); KETONES,URINE TRACE mg/dL (NEGATIVE); LEUKOCYTE ESTERASE ,URINE NEGATIVE (NEGATIVE); NITRITE, URINE NEGATIVE (NEGATIVE); PH,URINE 6.5 (5.0-8.0); PROTEIN,URINE 1+ mg/dl (NEGATIVE); UGLUCOSE NEGATIVE (NEGATIVE)
[2023-08-18 03:16] LABS: AMPHETAMINE, URINE NEGATIVE (NEGATIVE); BARBITURATE, URINE NEGATIVE (NEGATIVE); BENZODIAZEPINE, URINE NEGATIVE (NEGATIVE); COCCAINE, URINE NEGATIVE (NEGATIVE); OPIATE, URINE NEGATIVE (NEGATIVE); PHENCYCLIDINE SCREEN,URINE NEGATIVE (NEGATIVE)
[2023-08-18 03:16] LABS: ALANINE AMINOTRANSFERASE 47 U/L (12-78); ALBUMIN 3.9 g/dL (3.4-5.0); ALCOHOL, BLOOD < 3 mg/dL (0-10); ALKALINE PHOSPHATASE 107 U/L (46-116); ASPARTATE AMINOTRANSFERASE 48 U/L (15-37); BILIRUBIN,DIRECT 0.1 mg/dL (0.0-0.2); BILIRUBIN,TOTAL 0.5 mg/dL (0.2-1.0); CALCIUM, SERUM 9.9 mg/dL (8.5-10.1); CARBON DIOXIDE 28 mmol/L (21-32); CHLORIDE 103 mmol/L (98-107); CREATININE 0.7 mg/dL (0.6-1.3); GLUCOSE 115 mg/dL (74-106); POTASSIUM 3.5 mmol/L (3.5-5.1); SODIUM SERUM 137 mmol/L (136-145); TOTAL PROTEIN, SERUM 8.9 g/dL (6.4-8.2); UREA NITROGEN, BLOOD 12 mg/dL (7-18)
[2023-08-18 03:43] LABS: ACETAMINOPHEN 0 ug/ml (10-30); SALICYLATE 1.7 mg/dL (2.8-20.0)
[2023-08-18 03:43] LABS: CANNABINOID, URINE POSITIVE (NEGATIVE)
[2023-08-18] MEDS ORDERED: OLANZAPINE ZYDIS 5 MG TAB.RAPDIS PO ONE (17:00)
[2023-08-18] MEDS ORDERED: OLANZAPINE 5 MG TABLET ONE (17:10)
[2023-08-19 08:09] VITALS: BP 121/71; O2SAT 97
== END 2023-08-19 08:10 | disposition home or self-care (01) ==
LOC: ER 01:44
DX: R45.851 Suicidal ideations (principal); R44.0 Auditory hallucinations; F32.A Depression, unspecified; I10 Essential (primary) hypertension; E11.9 Type 2 diabetes mellitus without complications; Z88.8 Allergy status to other drugs, medicaments and biological substances; Z60.2 Problems related to living alone; Z20.822 Contact with and (suspected) exposure to COVID-19
CPT/HCPCS: 36415; 80048-TC; 80076-TC; 85025-TC; C9803; G0480